=== PATIENT | male | born 1970 | race Caucasian/White ===

== ENCOUNTER 2020-04-14 07:55 | Outpatient (CLI) | payer BC, SELFPAY ==
--- NOTE | 2020-04-15 12:09 | SLEEP_ITS ---
Home Sleep Test DATE OF STUDY: 04/14/2020 ORDERING PHYSICIAN: Enrique Last MD. REASON FOR THIS STUDY: History of sleep apnea, worsening symptoms. HISTORY: This patient is a 49-year-old male, 6 feet tall weighing 225 pounds with a body mass index of 30.5. He did not fill out his sleep survey, so there is significant amount of missing information. However, he does have a history of obstructive sleep apnea syndrome on June 24, 2008, with moderate obstructive sleep apnea syndrome with an AHI of 14.8 with oxygen desaturation, moderate to heavy snoring and mild myoclonus. His lowest desaturation was 88%. At that time, he complained of never feeling rested even after a good night of sleep. He was snoring at that time, but was not gasping for breath at night. He occasionally had excessive sweating at night. He was frequently falling asleep during the day. He was occasionally falling asleep involuntarily, but rarely while driving. He did not have loss of muscle tone with strong emotion. He was having problems at work due to excessive sleepiness. He did not have sleep paralysis or vivid dreamlike scene upon awakening or falling asleep only on occasion. He occasionally notices parts of his body jerking. He constantly was kicking at night. MEDICAL COMORBIDITIES: 1. Hypertension. 2. Erectile dysfunction. 3. Attention deficit hyperactivity disorder. 4. Chronic nonallergic rhinitis. 5. History of obstructive sleep apnea syndrome. MEDICATIONS: 1. Adderall b.i.d. for his ADHD. 2. Viagra p.r.n. erectile dysfunction. HABITS: Never smoked tobacco. He does use smokeless tobacco, chewing tobacco. He has 12 alcoholic beverages a week and this includes 2 to 4 shots 3 times a week. No substance abuse. DESCRIPTION OF THE STUDY: On the Spring Sleepiness Scale, he did not complete the study this time, but on the prior study in 2007, his Spring Sleepiness Scale score was 17, elevated. This was conducted as an unattended type 3 portable home sleep test using 4 channel monitoring including respiratory effort channel, snoring channel, oxygen saturation channel, and heart rate channel. The study was scored using CMS guidelines. The duration was short at 1 hour 25 minutes. The apnea-hypopnea index is 13.3, elevated. The oxygen desaturation index is 9, elevated. Lowest desaturation 93%. He had 6 apneas, which were all obstructive. He had 13 hypopneas. He had 109 snoring events and 13 desaturations with no time spent below 88%. Heart rate ranged from 60 to 92. IMPRESSION: This study is short, duration was only 1 hour 25 minutes due to some technical problem on the part of the patient. However, there is significant information here to allow proceeding with treatment. The apnea-hypopnea index is 13 and combined with hypertension, elevated Spring Sleepiness Scale score. The patient is a candidate for APAP therapy 5 to 15 cm with close clinical followup. The patient needs to complete his sleep profile, so that we can compare his current symptoms to his progress after treatment. The patient should not drive unless daytime sleepiness has been treated. Close clinical followup is recommended. DEANDRA GAY M.D. COMMUNITY SPORTS COORDINATOR COMMUNITY SPORTS COORDINATOR D I [place]: [place]
== END 2020-04-14 07:56 | disposition home or self-care (01) ==
LOC: ANHCSM 07:55
PROVIDERS: PCP Family Medicine; Visit Provider Family Medicine
DX: G47.33 Obstructive sleep apnea (adult) (pediatric) (principal)
CPT/HCPCS: 95806

== ENCOUNTER 2020-07-15 09:46 | Emergency (ER) | payer BC, SELFPAY ==
--- NOTE | ~2020-07-15 | XR_ITS ---
EXAMINATION: XR chest 1V portable DATE: 07/15/2020 10:37 INDICATION: Cough. COVID-19 pneumonia. TECHNIQUE: A single frontal view of the chest was obtained. COMPARISON: Chest 2 views 06/12/2016 FINDINGS: There are peripheral airspace opacities in all left lung zones. There is mild scarring at r ight lung apex. No pleural effusion or pneumothorax. The heart size is normal. IMPRESSION: 1. Peripheral airspace opacities in all left lung zones, consistent with pneumonia. Reviewed, dictated and finalized at location A. IMPRESSION: 1. Peripheral airspace opacities in all left lung zones, consistent with pneumo reddy.
--- NOTE | 2020-07-15 09:49 | ED.URI ---
HPI - URI/Sore Throat General Chief Complaint: Upper Respiratory Infection Stated Complaint: covid symptoms Time Seen by Provider: 07/15/20 09:48 History of Present Illness HPI Narrative: Tested positive for COVID-19 7 days ago. Had been doing well at home until yesterday. Now worsening cough and episodes of SOB. No fever, nausea, vomiting, CP, weakness. Related Data Home Medications Medication Instructions Recorded Confirmed dextroamphetamine-amphetamine 20 20 mg PO BID tablet 08/28/19 05/11/20 mg tablet sildenafil (pulm.hypertension) 20 mg PO QAM 09/26/19 05/11/20 [Revatio] cyanocobalamin (vitamin B-12) 1,000 mcg PO DAILY 05/11/20 05/11/20 1,000 mcg tablet Allergies Allergy/AdvReac Type Severity Reaction Status Date / Time No Known Allergies Allergy Verified 07/15/20 10:01 Review of Systems Review of Systems: All systems reviewed & are unremarkable except as noted in HPI and below Constitutional: Constitutional: Denies fever(s) Cardiovascular: Cardiovascular: Denies chest pain Respiratory: Respiratory: Reports cough and Reports dyspnea Gastrointestinal: Gastrointestinal: Denies abdominal pain, Denies nausea and Denies vomiting Neurologic: Denies dizziness and Denies weakness PMFSH Past Medical History Medical History ADHD (attention deficit hyperactivity disorder), inattentive type Chronic nonallergic rhinitis Colon cancer screening COVID-19 Encounter for prostate cancer screening Essential (primary) hypertension Folic acid deficiency Male erectile dysfunction, unspecified Obstructive sleep apnea Pulmonary hypertension mild Thrombocytosis Vitamin B12 deficiency anemia Surgical History Surgical History Hx of tonsillectomy Family History Family History Father , surgical complications No problems noted. Grandparent No problems noted. Grandparent COPD (chronic obstructive pulmonary disease) Grandparent Cancer Grandparent Cerebrovascular accident Social History Social History Smoking status: Never smoker Tobacco type: smokeless tobacco Smokeless tobacco user: chewing tobacco Alcohol intake: current Drinks per week: 12 Substance use: never Substance use type: does not use Exam Const: General: no acute distress and alert Nutritional Appearance: well nourished Orientation/consciousness: patient oriented x3 HENMT: Head: normal to inspection Resp: Effort & Inspection: normal respiratory effort Cardio: Rate: regular rate Rhythm: regular rhythm Skin: General skin exam: normal color Neuro: General: patient oriented x3, moves all extremities and no focal motor deficits Speech: normal speech Extrem: General: no edema Course Vital Signs Vital signs: Vital Signs Temperature 36.7 C 07/15/20 09:53 Pulse Rate 92 07/15/20 09:53 Respiratory Rate 17 07/15/20 09:53 Blood Pressure 116/72 07/15/20 09:53 Pulse Oximetry 96 07/15/20 09:53 Temperature 36.8 C 07/15/20 09:57 Pulse Rate 78 07/15/20 11:47 Respiratory Rate 21 H 07/15/20 11:47 Blood Pressure 118/69 07/15/20 11:47 Pulse Oximetry 97 07/15/20 11:47 MDM - URI/Sore Throat MDM Narrative Medical decision making narrative: CXR shows unilateral left sided pneumonia. Not typical for COVID-19. I will start on antibiotics for possble coincident bacterial pneumonia. Maintaining O2 saturation. No indication for admission. Medical Records Attestation: I reviewed the patient's medical records. Imaging Data Radiologist's impression: ITS Impressions Chest X-Ray 07/15/20 10:43 IMPRESSION: 1. Peripheral airspace opacities in all left lung zones, consistent with pneumonia.
[2020-07-15 09:53] VITALS: BP 116/72; PULSE 92; RESP 17; TEMP 36.7; O2SAT 96
[2020-07-15 09:57] VITALS: BP 116/72; PULSE 74; RESP 18; TEMP 36.8; O2SAT 96
[2020-07-15] MEDS: ALBUTEROL SULFATE (*SP) AEROSOL 1 PUFF 2 PUFF INHALATION (10:00)
[2020-07-15 10:41] VITALS: BP 115/73; PULSE 75; RESP 18; O2SAT 96
[2020-07-15 11:47] VITALS: BP 118/69; PULSE 78; RESP 21; O2SAT 97
[2020-07-15] MEDS: AZITHROMYCIN 250 MG TABLET 500 MG PO (11:47)
[2020-07-15] MEDS: AMOXICILLIN/CLAVULANATE K 875-125 MG TAB 1 TABLET PO (11:47)
== END 2020-07-15 11:49 | disposition home or self-care (01) ==
PROVIDERS: Emergency Provider Emergency Medicine; PCP Family Medicine
DX: J18.9 Pneumonia, unspecified organism (principal); Z72.0 Tobacco use; F90.9 Attention-deficit hyperactivity disorder, unspecified type; I10 Essential (primary) hypertension; G47.30 Sleep apnea, unspecified; Z86.19 Personal history of other infectious and parasitic diseases
CPT/HCPCS: 71045; 99283; A9270